=== PATIENT | female | born 1950 | race Caucasian/White ===

== ENCOUNTER 2021-03-01 17:14 | Emergency (ER) | payer OTHER ==
[~2021-03-01] VITALS: Ht 165.1 cm; Wt 130.2 kg
[2021-03-01] MEDS ORDERED: ELIQUIS5 M1 PO (17:26)
[2021-03-01] MEDS ORDERED: AMLODIPINE BESI25 GM MC (17:27)
[2021-03-01] MEDS ORDERED: BACLOFEN5 GM (17:27)
[2021-03-01] MEDS ORDERED: XANAX0.25 MG (17:28)
[2021-03-01] MEDS ORDERED: RELAFEN DS1000 MG (17:28)
== END 2021-03-01 20:42 | disposition home or self-care (01) ==
LOC: ER 17:14
DX: R44.1 Visual hallucinations (principal); R41.0 Disorientation, unspecified; I10 Essential (primary) hypertension

== ENCOUNTER 2021-05-04 19:40 | Inpatient (IN) | payer OTHER ==
[~2021-05-04] VITALS: Ht 154.9 cm; Wt 97.5 kg
[~2021-05-04 19:40] MED LIST: AMLODIPINE BESI25 GM MC; BACLOFEN5 GM; ELIQUIS5 M1 PO; RELAFEN DS1000 MG; XANAX0.25 MG
--- NOTE | 2021-05-04 19:57 | NUR ---
PATIENT IS RECIEVED SAYING THAT SHE HAS BEEN STRUGLING WITH CONSTIPATION FOR MORE THAN A WEEK WHICH RESULTS IN ANAL BLEEDING. PATIENT ALSO SAYS THAT HER OXYGEN LEVELS ARE LOW. PATIENT IS OXYGEN DEPENDENT. PATIENT HAS NASAL CANULA AT 2 LITERS.
--- NOTE | 2021-05-04 21:00 | NUR ---
SE ORIENTA AL PACIENTE SOBRE EL TX. SE EXTRAEN MUESTRAS CHILANGO BAJO MEDIDAS ASEPTICAS SE ROTULAN Y ENVIAN AL LABORATORIO SE CANALIZA Y ADMINISTRAN MEDICAMENTOS ADONIS ORDEN MEDICA. ABGS REALIZADOS
--- NOTE | 2021-05-04 22:19 | NUR ---
SE RECIBE PTE FEMRNINA DE AREA DE ASMA UNIT ES COLOCAD EN CAMA #3 ICU ER,SE CONECTA A MONITOR CARDIACO JERRY Y OXIMETRIA CONTINUA,SE [place] S/V Y SE NOTIFICAN A .SE NOTIFICA A MORALES DE TERAPIA RESPIRATORIA EL CUAL COLOCA BPAP COPN PARAMERTROS(IPAP-12,EPAP-6,FO2-50%,RATE-16).SE COLOCA A PTE MEZA SIGGUIEMDO MEDIDAS ASEPTICAS,SE REALIZA CAMBIO DE VESTIMENTA JUNTO A FAMILIAR Y SE TAHIRA LIMPIA Y SECA,SE MANTIENE A PTE EN OBSERVACION POR CAMBIOS.
--- NOTE | 2021-05-04 23:46 | NUR ---
SE RECIBE PTE DEL TURNO ANTERIOR, ALERTA Y ORIENTADA EN MERYL JERONIMO ESFERAS, UBICADA EN CAMA NIVEL MAS BAJO, HENDERSON DE IDENTIFICACION Y BARANDAS ELEVADAS POR PRECAUCION. SE OBSERVA CON BPAP PARAMETROS: IPAP-12, EPAP-6, FO2-50% Y RR-16, EL CUAL TOLERA MANTENIENDO BUEN PATRON RESPIRATORIO Y SATURANDO 99% ADONIS OXIMETRO DE PULSO. PIEL TIBIA AL TACTO. S/L EN RADIO LT CON ANGIO #20 PATENTE Y STEFAN DE EDEMA O ERITEMA. MEZA PATENTE CON FECHA DE 05/04/21 AL MOMENTO CON EGRESO APROXIMADO DE 200ML COLOR AMARILLO NU. SE MANTIENE BAJO OBSERVACION, CONECTADA A MONITOR CARDIACO Y OXIMETRIA DE PULSO. PENDIENTE CONSULTA CON DR Diogenes WEISS (MEDICINA INTERNA). ABG'S NOTIFICADOS A MS CONWAY (PERSONAL DE TERAPIA RESPIRATORIA) A LAS 23:37.
[2021-05-05] MEDS ORDERED: OXYC1TAB9 (13:08)
[2021-05-05] MEDS ORDERED: TRELEGY ELLIPT1 EACH (13:08)
[2021-05-05] MEDS ORDERED: PROAIR HFA8.5 GM (13:08)
[2021-05-05] MEDS ORDERED: AMIODARONE HCL200 MG (13:09)
[2021-05-05] MEDS ORDERED: TORSEMIDE10 MG (13:09)
[2021-05-05] MEDS ORDERED: MELOXICAM15 MG (13:09)
[2021-05-05] MEDS ORDERED: CETIRIZINE HCL10 MG (13:09)
[2021-05-05] MEDS ORDERED: BREO ELLIPTA I1 EACH (13:10)
[2021-05-05] MEDS ORDERED: TRIAMCINOLONE A15 G1 (13:10)
== END 2021-05-11 15:33 | disposition home or self-care (01) | DRG 191 ==
LOC: ER 19:40 → ICU 05-05 00:14 → ICU-2 05-05 00:14 → MEDI 05-05 00:14 → ICU 05-05 19:01 → MEDI 05-07 16:31 → ICU 05-07 16:56 → MEDI 05-07 23:24
PROVIDERS: ADMIT Internal Medicine; ATTEND Internal Medicine
PROC: 5A09457 Assistance with Respiratory Ventilation, 24-96 Consecutive Hours, Continuous Positive Airway Pressure (ICD-10-PCS; 2021-05-04)
PROC: 4A12X4Z Monitoring of Cardiac Electrical Activity, External Approach (ICD-10-PCS; 2021-05-04)
PROC: BW24ZZZ Computerized Tomography (CT Scan) of Chest and Abdomen (ICD-10-PCS; principal; 2021-05-05)
PROC: BW21ZZZ Computerized Tomography (CT Scan) of Abdomen and Pelvis (ICD-10-PCS; 2021-05-05)
PROC: B24BZZZ Ultrasonography of Heart with Aorta (ICD-10-PCS; 2021-05-05)
PROC: 3E0F7SF Introduction of Other Gas into Respiratory Tract, Via Natural or Artificial Opening (ICD-10-PCS; 2021-05-07)
DX: J44.1 Chronic obstructive pulmonary disease with (acute) exacerbation (principal); I48.20 Chronic atrial fibrillation, unspecified; E87.2 Acidosis; Z68.41 Body mass index [BMI] 40.0-44.9, adult; E66.2 Morbid (severe) obesity with alveolar hypoventilation; K62.5 Hemorrhage of anus and rectum; N39.0 Urinary tract infection, site not specified; L43.8 Other lichen planus; Z72.0 Tobacco use; Z20.822 Contact with and (suspected) exposure to COVID-19; I11.9 Hypertensive heart disease without heart failure; K57.30 Diverticulosis of large intestine without perforation or abscess without bleeding